=== PATIENT | male | born 1985 | race Hispanic/Latino ===

== ENCOUNTER 2017-07-23 21:18 | Emergency (ER) | payer OTHER ==
[2017-07-23 21:51] VITALS: BP 134/84; PULSE 69; RESP 18; TEMP 98.5; O2SAT 100
--- NOTE | 2017-07-23 22:45 | ED PDOC ---
Upper Extremity Pain/Injury Time Seen by Provider: 07/23/17 21:53 Chief Complaint (Nursing): Finger,Hand,&Wrist Chief Complaint (Provider): Finger Injury History Per: Patient History/Exam Limitations: no limitations Onset/Duration Of Symptoms: Hrs Current Symptoms Are (Timing): Still Present Additional Complaint(s): Patient is a 31 year old male who states he was playing football with friends and once he was done, noticed his left 4th fingertip was stuck in a bent position. Patient cannot recall any direct trauma to the finger and denies any pain. Patient was concerned over deformity, prompting ED visit. Patient did not take any medications prior to arrival. Patient is right hand dominant. Patient has no other complaints at this time. PMD: none Past Medical History Reviewed: Historical Data, Nursing Documentation, Vital Signs Vital Signs: Last Vital Signs Temp 98.5 F 07/23/17 21:48 Pulse 69 07/23/17 21:48 Resp 18 07/23/17 21:48 BP 134/84 07/23/17 21:48 Pulse Ox 100 07/23/17 21:48 - Medical History PMH: No Chronic Diseases - Surgical History Surgical History: Hernia Repair - Family History Family History: States: Unknown Family Hx - Social History Current smoker - smoking cessation education provided: No Alcohol: Social Drugs: Denies - Allergies Allergies/Adverse Reactions: Allergies Allergy/AdvReac Type Severity Reaction Status Date / Time amoxicillin Allergy RASH Verified 07/23/17 21:58 Penicillins Allergy RASH Verified 07/23/17 21:58 Review of Systems ROS Statement: Except As Marked, All Systems Reviewed And Found Negative Musculoskeletal: Positive for: Other (finger pain) Physical Exam - Reviewed Nursing Documentation Reviewed: Yes Vital Signs Reviewed: Yes - Physical Exam Appears: Positive for: Well, Non-toxic, No Acute Distress Head Exam: Positive for: ATRAUMATIC, NORMOCEPHALIC Skin: Positive for: Warm Eye Exam: Positive for: EOMI, PERRL Neck: Positive for: Painless ROM, Supple Cardiovascular/Chest: Positive for: Regular Rate, Rhythm Respiratory: Positive for: Normal Breath Sounds. Negative for: Decreased Breath Sounds, Accessory Muscle Use, Respiratory Distress Extremity: Positive for: Other ((+) left fourth digit DIP stuck in flexion with only passive extension intact (-) tenderness (-) swelling (-) ecchymosis (+) sensation intact. Otherwise, FROM all digits of left hand (-) distal NV deficit) - ECG O2 Sat by Pulse Oximetry: 100 (RA) Pulse Ox Interpretation: Normal Medical Decision Making Medical Decision Makin Initial Impression: Mallet Finger, Extensor tendon rupture Plan: -XR hand -Patient placed in aluminum finger splint. NV intact after placement. -Patient declined pain medication in ED. 2244 XR reviewed (-) fracture (-) dislocation Patient advised that official radiology read of XR is still pending and will call the patient if there is any discrepancy within 24 hours. On re-evaluation, patient offers no additional complaints. On exam, patient remains AAOx3, in no acute distress. On exam, neck is supple, lungs CTA, cardiac RRR, abdomen is soft and non-tender, neuro exam shows no focal findings. Diagnostic results d/w the patient in great detail. Dx of mallet finger, extensor tendon rupture of left 4th digit d/w the patient. Based on history, exam and diagnostic results plan will be for discharge and outpatient follow up. Advised to follow up with primary care physician/clinic/ hand (No[facility]) in 1-2 days without fail. Advised to take OTC medication as needed for pain. Return to the emergency room at any time for any new or worsening symptoms. Patient states he fully agrees with and understands discharge instructions. States that he agrees with the plan and disposition. Verbalized and repeated discharge instructions and plan. I have given the patient opportunity to ask any additional questions. Disposition - Clinical Impression Clinical Impression: Mallet finger of left hand - Patient ED Disposition Is Patient to be Admitted: No Counseled Patient/Family Regarding: Studies Performed, Diagnosis, Need For Followup - Disposition Referrals: Myrtle Umanzor MD [Staff Provider] - Disposition: Routine/Home Disposition Time: 22:52 Condition: STABLE Instructions: Common Finger Injuries (DC), Jammed Finger Forms: [employer] (Hebrew) Print Language: MONGOLIAN - POA Present On Arrival: None
--- NOTE | 2017-07-24 09:03 | RAD ---
PROCEDURE: Left Hand Radiographs. HISTORY: football injury COMPARISON: None. FINDINGS: BONES: No acute fracture or destructive bony lesion identified. JOINTS: Mild flexion deformity distal phalanges joint left ring finger apparently. SOFT TISSUES: Normal. OTHER FINDINGS: None. IMPRESSION: No acute fracture or dislocation. Mild flexion deformity left ring finger distal interphalangeal joint.
== END 2017-07-23 23:10 | disposition home or self-care (01) ==
LOC: H.ER 21:18
DX: M20.011 Mallet finger of right finger(s) (principal); W22.8XXA Striking against or struck by other objects, initial encounter; Y93.61 Activity, american tackle football; Z88.0 Allergy status to penicillin